=== PATIENT | male | born 1995 | race Two or more races ===

== ENCOUNTER 2021-08-18 06:55 | Day surgery (SDC) | payer OTHER ==
[~2021-08-18] VITALS: Ht 182.9 cm; Wt 106.6 kg
== END 2021-08-18 22:10 | disposition home or self-care (01) ==
LOC: CIR.AMB 06:55
PROVIDERS: ATTEND Orthopaedic Surgery Hand Surgery
DX: S62.222A Displaced Rolando's fracture, left hand, initial encounter for closed fracture (principal); Z20.822 Contact with and (suspected) exposure to COVID-19